=== PATIENT | female | born 1970 | race Caucasian/White ===

== ENCOUNTER → 2022-02-14 | Outpatient (CLI) | payer OTHER | LOC: HEART 5 08:20 | DX: I10 Essential (primary) hypertension (principal); I08.0 Rheumatic disorders of both mitral and aortic valves | CPT/HCPCS: 93306 ==

== ENCOUNTER → 2022-02-26 | Outpatient (CLI) | payer OTHER ==
[~2022-02-26] MED LIST: FOLIC ACID1 MG PO; LISINOPRIL20 MG PO; METHOTREXATE T2.5 MG PO; OMEPRAZOLE40 MG PO; PROAIR HFA8.5 GM INH; VITAMIN D21250 MCG PO
[2022-02-26 08:34] LABS: HEMOGLOBIN 14.2 gm/dl (12.3-15.3); RED BLOOD COUNT 4.55 M/UL (4.00-5.10); WHITE BLOOD COUNT 6.8 K/UL (4.5-11.0)
[2022-02-26 09:01] LABS: BUN/CREATININE RATIO 20 (0-10)
== END ==
LOC: OPSV2 07:30
PROVIDERS: Orthopaedic Surgery
DX: Z01.818 Encounter for other preprocedural examination (principal); M23.92 Unspecified internal derangement of left knee
CPT/HCPCS: 36415; 80048; 85025; 93005

== ENCOUNTER → 2022-03-08 | Day surgery (SDC) | payer OTHER ==
[~2022-03-08] MED LIST changes: +HYDROCODON-ACE1 EAC2 PO
== END | disposition home or self-care (01) ==
LOC: OR 06:38
DX: S83.232A Complex tear of medial meniscus, current injury, left knee, initial encounter (principal); M22.42 Chondromalacia patellae, left knee; M23.92 Unspecified internal derangement of left knee; I11.9 Hypertensive heart disease without heart failure; J45.909 Unspecified asthma, uncomplicated; K21.9 Gastro-esophageal reflux disease without esophagitis; L40.50 Arthropathic psoriasis, unspecified; Z88.5 Allergy status to narcotic agent; Z88.2 Allergy status to sulfonamides; Z79.899 Other long term (current) drug therapy; Z20.822 Contact with and (suspected) exposure to COVID-19
CPT/HCPCS: J0171; J0690; J1100; J1170; J2001; J2405; J2704; J3010; J7120